=== PATIENT | female | born 1945 | race Two or more races ===

== ENCOUNTER 2018-02-03 13:05 | Outpatient (CLI) | payer MEDICARE ==
[2018-02-03 13:00] VITALS: BP 144/82
[~2018-02-03 13:05] MED LIST: CHEMO; DEXILANT60 MG ORAL; GABAPENTIN100 MG ORAL; MOBIC15 MG ORAL; NORVASC5 MG ORAL; ULTRAM50 MG ORAL
--- NOTE | 2018-02-03 13:43 | GI Progress Note ---
Assessment/Plan Problems: (1) Diarrhea ICD Codes: R19.7 - Diarrhea, unspecified SNOMED: 30694450 (2) Dehydration ICD Codes: E86.0 - Dehydration SNOMED: 29297751 (3) OB + stool ICD Codes: R19.5 - Other fecal abnormalities SNOMED: 22316922, 700129780 Status: stable Status Narrative Seen with Dr. Cr. Assessment/Plan collect for cdiff >> treat if positive - colonoscopy if negative. RTC after microbiology results Subjective Subjective diarrhea >> constant, with bloody stools x 2 months. Imodium does not help. Denies any recent travels. Objective T 98.1 BP 144/82 P 91 98 RA WT 150lbs General Appearance: WD/WN, no apparent distress, alert Cardiovascular: normal rate Respiratory/Chest: normal breath sounds, no respiratory distress Abdominal Exam: normal bowel sounds, non tender, soft Extremities: normal range of motion, non-tender Guerita Moss N.P. Feb 03, 2018 13:43
[2018-02-03 13:53] VITALS: BP 144/82
[2018-02-03] MEDS ORDERED: XELODA150 MG ORAL (13:59)
[2018-02-03] MEDS ORDERED: OMEPRAZOLE40 M1 ORAL (13:59)
[2018-02-03] MEDS ORDERED: DOXYCYCLINE HY200 MG PO (13:59)
[2018-02-03] MEDS ORDERED: SULFASALAZINE500 MG ORAL (13:59)
== END 2018-02-03 13:37 | disposition home or self-care (01) ==
LOC: PAN 13:05
DX: R19.7 Diarrhea, unspecified (principal); E86.0 Dehydration; R19.5 Other fecal abnormalities
CPT/HCPCS: 99212

== ENCOUNTER 2018-02-04 10:24 | Outpatient (CLI) | payer MEDICARE ==
[~2018-02-04 10:24] MED LIST changes: +DOXYCYCLINE HY200 MG PO; +OMEPRAZOLE40 M1 ORAL; +SULFASALAZINE500 MG ORAL; +XELODA150 MG ORAL
== END 2018-02-04 11:04 | disposition home or self-care (01) ==
LOC: PAN 10:24
DX: R19.7 Diarrhea, unspecified (principal)
CPT/HCPCS: 87324

== ENCOUNTER 2018-02-25 08:20 | Day surgery (SDC) | payer MEDICARE, OTHER ==
[2018-02-25] VITALS (8 sets, daily range): BP systolic 104–118; BP diastolic 63–71
[~2018-02-25] VITALS: Ht 160 cm; Wt 68.0 kg
[2018-02-25] MEDS ORDERED: GABAPENTIN100 MG ORAL (09:08)
--- NOTE | 2018-02-25 09:21 | Anethesia Preoperative Eval ---
Anesthesia Pre-op PMH/ROS General Date of Evaluation: Feb 25, 2018 Time of Evaluation: 09:19 Anesthesiologist: alessandro ASA Score: ASA 3 Mallampati Score Class I : Soft palate, uvula, fauces, pillars visible Class II: Soft palate, uvula, fauces visible Class III: Soft palate, base of uvula visible Class IV: Only hard plate visible Mallampati Classification: Class II Surgeon: austen Diagnosis: anemia, rectal bleed Surgical Procedure: colonoscopy Anesthesia History: none Social History: smoking - nonsmoker Family History: no anesthesia problems Allergies: Coded Allergies: AMOXICILLIN (Verified Allergy, Unknown, 02/24/18) Medications: see eMAR Past Medical History Cardiovascular: Reports: HTN Gastrointestinal/Genitourinary: Reports: GERD Hematology/Immune: Reports: anemia, other - breast cancer Musculoskeletal/Integumentary: Reports: OA PSxH Narrative: mastectomy, cholecystectomy Anesthesia Pre-op Phys. Exam Physician Exam Constitutional: NAD Neurologic: CN 2-12 intact Cardiovascular: RRR Respiratory: CTA Gastrointestinal: S/NT/ND Airway Exam Mallampati Score: Class II MO: limited Neck: short TMD: 2fb ROM: limited Teeth: missing Anesthesia Pre-op A/P Studies Pre-op Studies: EKG Risk Assessment & Plan Assessment: asa3 Plan: mac Status Change Before Surgery: No Pre-Antibiotics Drug: AMADEO Danielson Feb 25, 2018 09:21
[2018-02-25] MEDS ORDERED: DiphenhydrAMINE 50mg/ml Inj IVP PRN (09:30)
[2018-02-25] MEDS ORDERED: Atropine Inj 1mg/10ml Syr IV PRN (09:30)
[2018-02-25] MEDS ORDERED: fentaNYL 100 mcg/2 mL IV PRN (09:30)
[2018-02-25] MEDS ORDERED: Midazolam 2mg/2ml Inj IVP PRN (09:30)
--- NOTE | 2018-02-25 09:39 | Pre-Procedure Note/Attestation ---
Pre-Procedure Note/Attestation Complete Prior to Procedure Planned Procedure: not applicable Procedure Narrative: colonoscopy Indications for Procedure Pre-Operative Diagnosis: rectal bleed Attestation I attest that I discussed the nature of the procedure; its benefits; risks and complications; and alternatives (and the risks and benefits of such alternatives ), prior to the procedure, with the patient (or the patient's legal malt liquors sales representative). I attest that, if there was a reasonable possibility of needing a blood transfusion, the patient (or the patient's legal malt liquors sales representative) was given the [facility] standardized written summary, pursuant to the William Geeta Blood Safety Act ([place] Health and Safety Code # 1645, as amended). I attest that I re-evaluated the patient just prior to the surgery and that there has been no change in the patient's H&P, except as documented below: ESME NOLEN Feb 25, 2018 09:39
--- NOTE | 2018-02-25 09:40 | Short Stay Surgery H&P ---
History of Present Illness History of Present Illness Chief Complaint see recent consult note HPI Edie Coker is a 72 year old female who was admitted on for Diarrhea Patient History Allergies: Coded Allergies: AMOXICILLIN (Verified Allergy, Unknown, 02/24/18) Medication History Scheduled Amlodipine Besylate (Norvasc), 5 MG ORAL DAILY, (Reported) Gabapentin* (Gabapentin*), 100 MG ORAL BEDTIME, (Reported) Meloxicam* (Mobic*), 15 MG ORAL PRN, (Reported) Omeprazole (Omeprazole), 40 MG ORAL DAILY, (Reported) Miscellaneous Medications Capecitabine (Xeloda), 150 MG ORAL, (Reported) Discontinued Medications Dexlansoprazole (Dexilant), 60 MG ORAL DAILY, (Reported) Discontinued Reason: Pt stopped taking med Doxycycline Hyclate (Doxycycline Hyclate), 100 MG PO, (Reported) Discontinued Reason: Pt stopped taking med Gabapentin* (Gabapentin*), 100 MG ORAL QHS, (Reported) Discontinued Reason: Pt stopped taking med Sulfasalazine* (Azulfidine*), 500 MG ORAL FOUR TIMES A DAY, (Reported) Discontinued Reason: Pt stopped taking med Tramadol Hcl (Ultram*), 50 MG ORAL Q6H, (Reported) Discontinued Reason: Pt stopped taking med [Oral Chemo], (Reported) Discontinued Reason: Pt stopped taking med Physical Exam Vital Signs Last Vital Signs Date Time Temp Pulse Resp B/P (MAP) Pulse Ox O2 Delivery O2 Flow Rate FiO2 02/25/18 09:10 97.0 74 18 104/63 97 Room Air 97.0 Plan Attestation Are the patient's medical conditions optimized for surgery? ESME NOLEN Feb 25, 2018 09:40
--- NOTE | 2018-02-25 10:10 | Endoscopy Procedure Note ---
Endoscopy Procedure Note General Indication for Procedure: rectal bleed Procedures Performed: colonoscopy Operative Findings/Diagnosis: colitis Specimen: yes Pt Tolerated Procedure Well: Yes Estimated Blood Loss: none Anesthesia Anesthesiologist: alessandro Anesthesia: MAC Inserted Devices Implant(s) used?: No Quality Quality of Bowel Preparation: Fair Did scope reach the cecum?: Yes Was there any complications?: No GI Core Measures 50 yrs or older w/o bx or poly: No 10yrs. F/U not recommended: Yes If not recommended, why?: Above average risk 10 yrs. F/U needed: Yes 18 years or older w/prev. colo: No ESME NOLEN Feb 25, 2018 10:10
--- NOTE | 2018-02-25 10:41 | Immediate Post-Op Evaluation ---
Immediate Post-Op Evalulation Immediate Post-Op Evalulation Procedure: colonoscopy Date of Evaluation: Feb 25, 2018 Time of Evaluation: 10:32 IV Fluids: 350ml 0.9ns Blood Products: none Estimated Blood Loss: negligible Blood Pressure Systolic: 110 Blood Pressure Diastolic: 70 Pulse Rate: 70 Respiratory Rate: 18 O2 Sat by Pulse Oximetry: 99 Temperature (Fahrenheit): 97.7 Pain Score (1-10): 0 Nausea: No Vomiting: No Complications none Patient Status: awake, reacts, patent Hydration Status: adequate Drug: AMADEO Danielson Feb 25, 2018 10:41
--- NOTE | 2018-02-25 10:42 | 48 Hour Post Anesthesia Eval ---
Post Anesthesia Evaluation Procedure: colonoscopy Date of Evaluation: Feb 25, 2018 Time of Evaluation: 10:41 Blood Pressure Systolic: 115 0: 68 Pulse Rate: 74 Respiratory Rate: 18 Temperature (Fahrenheit): 97.7 O2 Sat by Pulse Oximetry: 99 Airway: patent Nausea: No Vomiting: No Pain Intensity: 0 Hydration Status: adequate Cardiopulmonary Status: stable Mental Status/LOC: patient returned to baseline Post-Anesthesia Complications: none Follow-up care needed: N/A AMADEO CHERY Feb 25, 2018 10:42
--- NOTE | 2018-02-25 16:45 | Operative Note - Dictated ---
DATE OF OPERATION: 02/25/2018 SURGEON: Toby rC M.D. ANESTHESIOLOGIST: Dr. Powers. PROCEDURE: Colonoscopy with biopsy. ANESTHESIA: Per Dr. Powers. INSTRUMENT: Olympus adult flexible colonoscope. INDICATION: Rectal bleeding. The procedure, risks, benefits, and possible consequences, including hemorrhage, aspiration, perforation and infection, and alternative treatments, were explained to the patient/legal guardian by Dr. Toby Cr and the patient/legal guardian understood and accepted these risks. DESCRIPTION OF PROCEDURE: After informed consent was obtained and the patient was adequately sedated, first rectal exam was performed which was normal. Then, the scope was advanced from the rectum into the cecum then subsequently terminal ileum. Quality of prep was fair. The patient has evidence of inflammation in the colon starting from the rectum all the way down in the cecum. Terminal ileum was clear. The inflammation was worse in the right colon compared to the left colon. There were some multiple ulcerations especially in the cecum and transverse colon. Multiple biopsies from terminal ileum, cecum, ascending colon, transverse colon, descending colon, sigmoid colon, rectum were obtained for diagnosis. Retroflexion of rectum was performed which showed small internal hemorrhoids. SUMMARY OF FINDINGS: Diffuse colitis suspicious for ulcerative colitis versus CMV infection. PLAN: Send biopsies for evaluation for CMV for ulcerative colitis. Meanwhile, we are going to start the patient on UCERIS and Apriso and have the patient follow as an outpatient. Toby Cr M.D. DR: Reggie JOB#: [id number] CC: HEATHER
--- NOTE | 2018-02-28 21:33 | Cardiology Report ---
APPROVED REPORT EKG Measurement Heart [id number] Normal sinus rhythm Normal ECG
== END 2018-02-25 11:40 | disposition home or self-care (01) ==
LOC: GAS 08:20
DX: K52.9 Noninfective gastroenteritis and colitis, unspecified (principal); K64.8 Other hemorrhoids; Z88.8 Allergy status to other drugs, medicaments and biological substances; K21.9 Gastro-esophageal reflux disease without esophagitis; I10 Essential (primary) hypertension; M19.90 Unspecified osteoarthritis, unspecified site; Z90.49 Acquired absence of other specified parts of digestive tract; Z90.10 Acquired absence of unspecified breast and nipple
CPT/HCPCS: 94003; 94150

== ENCOUNTER 2018-03-08 10:41 | Outpatient (CLI) | payer MEDICARE ==
--- NOTE | 2018-02-25 08:13 | Anethesia Preoperative Eval ---
Anesthesia Pre-op PMH/ROS General Date of Evaluation: Feb 25, 2018 Time of Evaluation: 08:11 Anesthesiologist: alessandro ASA Score: ASA 3 Mallampati Score Class I : Soft palate, uvula, fauces, pillars visible Class II: Soft palate, uvula, fauces visible Class III: Soft palate, base of uvula visible Class IV: Only hard plate visible Mallampati Classification: Class II Surgeon: austen Surgical Procedure: colonoscopy Anesthesia History: none Social History: smoking Family History: no anesthesia problems Allergies: Coded Allergies: AMOXICILLIN (Verified Allergy, Unknown, 02/24/18) Medications: see eMAR Past Medical History Cardiovascular: Reports: HTN Gastrointestinal/Genitourinary: Reports: GERD Hematology/Immune: Reports: anemia, other - cancer Musculoskeletal/Integumentary: Reports: OA Anesthesia Pre-op A/P Risk Assessment & Plan Assessment: asa3 Plan: AMADEO Izquierdo Feb 25, 2018 08:13
[~2018-03-08] VITALS: Ht 30.5 cm; Wt 0.5 kg
[~2018-03-08 10:41] MED LIST changes: +Atropine Inj 1mg/10ml Syr IV PRN; +DiphenhydrAMINE 50mg/ml Inj IVP PRN; +Midazolam 2mg/2ml Inj IVP PRN; +fentaNYL 100 mcg/2 mL IV PRN
[2018-03-08 11:36] VITALS: BP 106/60
--- NOTE | 2018-03-09 09:55 | GI Progress Note ---
Assessment/Plan Problems: (1) Colitis ICD Codes: K52.9 - Noninfective gastroenteritis and colitis, unspecified SNOMED: 12040058 (2) Dehydration ICD Codes: E86.0 - Dehydration SNOMED: 65659540 (3) GERD (gastroesophageal reflux disease) ICD Codes: K21.9 - Gastro-esophageal reflux disease without esophagitis SNOMED: 886265046 (4) CMV (cytomegalovirus infection) ICD Codes: B25.9 - Cytomegaloviral disease, unspecified SNOMED: 73707254 Status: stable Status Narrative Seen with Dr. Cr. Assessment/Plan Stop Uceris increase Apriso from 2g to 4g Rx Valganciclovir x 21 days for CMV RTC x 2 months Subjective Subjective abdominal pain LLQ diarrhea decreasing possible side effect of Uceris? Objective Last 24 Hour Vital Signs Date Time Temp Pulse Resp B/P (MAP) Pulse Ox O2 Delivery O2 Flow Rate FiO2 03/08/18 11:36 97.5 65 16 106/60 99 97.5 General Appearance: WD/WN, no apparent distress, alert Cardiovascular: normal rate Respiratory/Chest: normal breath sounds, no respiratory distress Abdominal Exam: normal bowel sounds, non tender, soft Extremities: normal range of motion, non-tender Guerita Moss N.P. Mar 09, 2018 09:55
== END 2018-03-08 11:25 | disposition home or self-care (01) ==
LOC: PAN 10:41
DX: K52.9 Noninfective gastroenteritis and colitis, unspecified (principal); E86.0 Dehydration; K21.9 Gastro-esophageal reflux disease without esophagitis; B25.9 Cytomegaloviral disease, unspecified
CPT/HCPCS: 99212

== ENCOUNTER 2018-05-10 10:04 | Outpatient (CLI) | payer MEDICARE, OTHER ==
[~2018-05-10 10:04] MED LIST changes: -Atropine Inj 1mg/10ml Syr IV PRN; -DiphenhydrAMINE 50mg/ml Inj IVP PRN; -Midazolam 2mg/2ml Inj IVP PRN; -fentaNYL 100 mcg/2 mL IV PRN
[2018-05-10 10:35] VITALS: BP 99/62
--- NOTE | 2018-05-10 10:42 | GI Progress Note ---
Assessment/Plan Problems: (1) Colitis ICD Codes: K52.9 - Noninfective gastroenteritis and colitis, unspecified SNOMED: 37901509 (2) GERD (gastroesophageal reflux disease) ICD Codes: K21.9 - Gastro-esophageal reflux disease without esophagitis SNOMED: 043462556 (3) Diarrhea ICD Codes: R19.7 - Diarrhea, unspecified SNOMED: 90685332 Status: stable Status Narrative Seen with Dr. Cr. Assessment/Plan cont current plan of care >> apriso RTC x 6 months The patient was seen and examined at bedside and all new and available data was reviewed in the patients chart. I agree with the above findings, impression and plan. (Patient seen earlier today. Signature stamp does not reflect patient encounter time.). - Toby Cr MD Subjective Subjective diarrhea resolved no abdominal pain on apriso for colitis Objective Last 24 Hour Vital Signs Date Time Temp Pulse Resp B/P (MAP) Pulse Ox O2 Delivery O2 Flow Rate FiO2 05/10/18 10:35 66 99/62 98 Weight (Pounds): 150 General Appearance: WD/WN, no apparent distress, alert Cardiovascular: normal rate Respiratory/Chest: normal breath sounds, no respiratory distress Abdominal Exam: normal bowel sounds, non tender, soft Extremities: normal range of motion, non-tender Kemar Moss NP May 10, 2018 10:42
[2018-05-10] MEDS ORDERED: APRISO0.375 GM PO (11:07)
== END 2018-05-10 10:38 | disposition home or self-care (01) ==
LOC: PAN 10:04
DX: K52.9 Noninfective gastroenteritis and colitis, unspecified (principal); K21.9 Gastro-esophageal reflux disease without esophagitis; R19.7 Diarrhea, unspecified
CPT/HCPCS: 99211

== ENCOUNTER 2018-12-27 09:58 | Outpatient (CLI) | payer MEDICARE, OTHER ==
[~2018-12-27 09:58] MED LIST changes: +APRISO0.375 GM PO
[2018-12-27 10:34] VITALS: BP 111/67
--- NOTE | 2018-12-27 10:59 | GI Progress Note ---
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 Cr. Assessment/Plan Metastatic breast cancer Rule out C. difficile Ulcerative colitis Recommendations Refill of present Obtain stool for C. difficile RTC after PET scan The patient was seen and examined at bedside and all new and available data was reviewed in the patients chart. I agree with the above findings, impression and plan. (Patient seen earlier today. Signature stamp does not reflect patient encounter time.). - Toby Cr MD Subjective Subjective Abdominal pain Diarrhea Had fever over 100 F this morning, has taken p.o. Tylenol No longer takes Apriso Objective Last 24 Hour Vital Signs Date Time Temp Pulse Resp B/P (MAP) Pulse Ox O2 Delivery O2 Flow Rate FiO2 12/27/18 10:34 98.1 78 18 111/67 95 General Appearance: WD/WN, no apparent distress, alert Cardiovascular: normal rate Respiratory/Chest: normal breath sounds, no respiratory distress Abdominal Exam: normal bowel sounds, non tender, soft Extremities: normal range of motion, non-tender Objective Unsteady gait, ambulates with a walker Kemar Moss [employer] Dec 27, 2018 10:59
[2018-12-27] MEDS ORDERED: AFINITOR5 MG ORAL (12:51)
== END 2018-12-27 10:28 | disposition home or self-care (01) ==
LOC: PAN 09:58
DX: K21.9 Gastro-esophageal reflux disease without esophagitis (principal); K52.9 Noninfective gastroenteritis and colitis, unspecified; B25.9 Cytomegaloviral disease, unspecified; E86.0 Dehydration; R19.5 Other fecal abnormalities; D50.9 Iron deficiency anemia, unspecified; C50.919 Malignant neoplasm of unspecified site of unspecified female breast; C79.9 Secondary malignant neoplasm of unspecified site; K51.90 Ulcerative colitis, unspecified, without complications
CPT/HCPCS: 87324; G0463; 99212

== ENCOUNTER 2019-06-28 14:03 | Outpatient (CLI) | payer MEDICARE, OTHER ==
[~2019-06-28 14:03] MED LIST changes: +AFINITOR5 MG ORAL
[2019-06-28] MEDS ORDERED: APRISO0.375 GM PO (15:15)
[2019-06-28] MEDS ORDERED: AMLODIPINE BES2.5 MG ORAL (15:15)
[2019-06-28] MEDS ORDERED: COLCRYS0.6 M1 PO (15:15)
[2019-06-28] MEDS ORDERED: POTASSIUM PO (15:15)
[2019-06-28 15:16] VITALS: BP 94/54
--- NOTE | 2019-06-29 15:27 | General Progress Note ---
Assessment/Plan Problem List: (1) CMV (cytomegalovirus infection) ICD Codes: B25.9 - Cytomegaloviral disease, unspecified SNOMED: 98836294 (2) Iron (Fe) deficiency anemia ICD Codes: D50.9 - Iron deficiency anemia, unspecified SNOMED: 74335237 (3) GERD (gastroesophageal reflux disease) ICD Codes: K21.9 - Gastro-esophageal reflux disease without esophagitis SNOMED: 082970243 (4) Diarrhea ICD Codes: R19.7 - Diarrhea, unspecified SNOMED: 28222997 (5) Colitis ICD Codes: K52.9 - Noninfective gastroenteritis and colitis, unspecified SNOMED: 79758632 Assessment/Plan: ddx of diarrhea infectious either C.diff or CMV, chemo related, colchicine related, colitis flare check C.diff dc colchicine RTC 1 week Subjective ROS Limited/Unobtainable: Yes Allergies: Coded Allergies: AMOXICILLIN (Verified Allergy, Unknown, 02/24/18) Objective General Appearance: alert EENT: normal ENT inspection Neck: supple Cardiovascular: normal rate Respiratory/Chest: decreased breath sounds Abdomen: normal bowel sounds, non tender, soft Extremities: non-tender Toby Cr MD Jun 29, 2019 15:27
== END 2019-06-28 16:03 | disposition home or self-care (01) ==
LOC: PAN 14:03
DX: K21.9 Gastro-esophageal reflux disease without esophagitis (principal); D50.9 Iron deficiency anemia, unspecified; R19.7 Diarrhea, unspecified; K52.9 Noninfective gastroenteritis and colitis, unspecified; Z88.0 Allergy status to penicillin
CPT/HCPCS: 99212

== ENCOUNTER 2019-07-03 13:03 | Outpatient (CLI) | payer MEDICARE, OTHER ==
[~2019-07-03 13:03] MED LIST changes: +AMLODIPINE BES2.5 MG ORAL; +COLCRYS0.6 M1 PO; +POTASSIUM PO
== END 2019-07-03 15:03 | disposition home or self-care (01) ==
LOC: LAB 13:03
DX: R19.7 Diarrhea, unspecified (principal)
CPT/HCPCS: 87324

== ENCOUNTER 2019-12-25 14:17 | Outpatient (CLI) | payer MEDICARE, OTHER ==
[2019-12-25] MEDS ORDERED: VITAMIN B COMP1 EAC2 ORAL (15:34)
[2019-12-25] MEDS ORDERED: VITAMIN D2000 UNI3 PO (15:34)
[2019-12-25] MEDS ORDERED: TYLENOL EXTRA500 MG ORAL (15:34)
[2019-12-25 15:35] VITALS: BP 136/75
--- NOTE | 2019-12-26 09:52 | General Progress Note ---
Assessment/Plan Problem List: (1) Metastatic breast cancer ICD Codes: C50.919 - Malignant neoplasm of unspecified site of unspecified female breast SNOMED: 380949454, 261883805 (2) CMV (cytomegalovirus infection) ICD Codes: B25.9 - Cytomegaloviral disease, unspecified SNOMED: 85903875 (3) Iron (Fe) deficiency anemia ICD Codes: D50.9 - Iron deficiency anemia, unspecified SNOMED: 33331961 (4) GERD (gastroesophageal reflux disease) ICD Codes: K21.9 - Gastro-esophageal reflux disease without esophagitis SNOMED: 060153836 (5) Diarrhea ICD Codes: R19.7 - Diarrhea, unspecified SNOMED: 40720130 (6) Colitis ICD Codes: K52.9 - Noninfective gastroenteritis and colitis, unspecified SNOMED: 61196108 Assessment/Plan: on Apriso 2 tabs daily asymptomatic hold colonoscopy given on chemo rtc 3 months Subjective ROS Limited/Unobtainable: Yes Allergies: Coded Allergies: AMOXICILLIN (Verified Allergy, Unknown, 02/24/18) Objective Last 24 Hour Vital Signs Date Time Temp Pulse Resp B/P (MAP) Pulse Ox O2 Delivery O2 Flow Rate FiO2 12/25/19 15:35 98.4 84 16 136/75 (95) 100 General Appearance: alert EENT: normal ENT inspection Neck: supple Cardiovascular: normal rate Respiratory/Chest: decreased breath sounds Abdomen: normal bowel sounds, non tender, soft Extremities: non-tender Toby Cr MD Dec 26, 2019 09:52
== END 2019-12-25 16:17 | disposition home or self-care (01) ==
LOC: PAN 14:17
DX: K21.9 Gastro-esophageal reflux disease without esophagitis (principal); C50.919 Malignant neoplasm of unspecified site of unspecified female breast; B25.9 Cytomegaloviral disease, unspecified; D50.9 Iron deficiency anemia, unspecified; R19.7 Diarrhea, unspecified; K52.9 Noninfective gastroenteritis and colitis, unspecified
CPT/HCPCS: 99212